=== PATIENT | female | born 1995 | race Caucasian/White ===

== ENCOUNTER 2016-07-11 21:56 | Emergency (ER) | payer BC ==
[2016-07-11] MEDS ORDERED: predniSONE TAB* 20 MG PO ONE (22:15)
[2016-07-11] MEDS ORDERED: Ondansetron ODT TAB* 4 MG PO ONE ×2 (22:16→22:17)
[2016-07-11 23:19] VITALS: BP 101/76
--- NOTE | 2016-07-11 23:30 | ED ---
Allergic Reaction/Systemic - HPI Summary HPI Summary: Patient arrives to ED with CC of allergic reaction; nauseous, dizzy, hot; Patient had Benadryl one hour ago which helped resolve her symptoms; orbital edema and edema around mouth which has resolved. She arrives to ED d/t continuous nausea even after allergic symptoms resolved. She denies airway compromise, shortness of breath or chest pain. She denies urticaria. Patient states hot feeling resolved after 1 hour. Patient is allergic to nuts but did not have any prior to the reaction. She states she had some Ritz crackers, which she eats daily, and has never had a reaction to. She admits there might be cross contamination. - History of Current Complaint Chief Complaint: EDAllergicReaction Time Seen by Provider: 07/11/16 22:07 Hx Obtained From: Patient Onset/Duration: Sudden Onset Timing: Constant, Lasting Hours - resolved on arrival Severity Initially: Mild Severity Currently: Mild Pain Intensity: 0 Pain Scale Used: 0-10 Numeric Character: Swelling - herminio-orbital now resolved Associated Signs And Symptoms: Positive: Nausea - Related Hx Possible Reaction To: Food - Allergies/Home Medications Allergies/Adverse Reactions: Allergies Allergy/AdvReac Type Severity Reaction Status Date / Time Peanut Oil Allergy Anaphylatic Verified 07/11/16 23:09 Shock Peanut-containing Drug Allergy Anaphylatic Verified 07/11/16 23:09 Products Shock PMH/Surg Hx/FS Hx/Imm Hx Previously Healthy: Yes Infectious Disease History: No Infectious Disease History: Denies: Traveled Outside the [place] in Last 30 Days - Social History Occupation: Unemployed Lives: With Family Alcohol Use: Weekly Hx Substance Use: No Substance Use Type: Reports: None Hx Tobacco Use: No Smoking Status (MU): Never Smoked Tobacco Review of Systems Constitutional: Negative Eyes: Negative Cardiovascular: Negative Respiratory: Negative Positive: Nausea Genitourinary: Negative Skin: Negative Neurological: Negative Psychological: Normal All Other Systems Reviewed And Are Negative: Yes Physical Exam Triage Information Reviewed: Yes Vital Signs On Initial Exam: Initial Vitals Temp Pulse Resp BP Pulse Ox 97.1 F 88 16 110/73 97 07/11/16 21:59 07/11/16 21:59 07/11/16 21:59 07/11/16 21:59 07/11/16 21:59 Vital Signs Reviewed: Yes Appearance: Positive: Well-Appearing, No Pain Distress, Well-Nourished Skin: Positive: Skin Color Reflects Adequate Perfusion Eyes: Positive: EOMI, JOSE, Conjunctiva Clear ENT: Positive: Pharynx normal, TMs normal Respiratory/Lung Sounds: Positive: Clear to Auscultation, Breath Sounds Present Cardiovascular: Positive: Normal, RRR Bowel Sounds: Positive: Present Musculoskeletal: Positive: Normal, Strength/ROM Intact Neurological: Positive: Alert, Oriented to Person Place, Time Psychiatric: Positive: Normal AVPU Assessment: Alert - Magalie Coma Scale Coma Scale Total: 15 Diagnostics - Vital Signs Vital Signs Temp Pulse Resp BP Pulse Ox 07/11/16 23:18 87 101/76 99 07/11/16 23:14 97.1 F 88 16 101/76 07/11/16 23:05 81 99 07/11/16 21:59 97.1 F 88 16 110/73 97 - Laboratory Lab Statement: Any lab studies that have been ordered have been reviewed, and results considered in the medical decision making process. Allergic Reaction Course/Dx - Course Course Of Treatment: Patient given zofran and prednisone in ED. Patient symptoms resolved on arrival. Unknown contact with allergen. Will treat for 5 days of prednisone. Benadryl encouraged at night. Patient has epi-pen and has not had to use it. Patient encouraged to follow up with PCP. - Diagnoses Differential Diagnosis/HQI/PQRI: Positive: Airway Obstruction, Anaphylaxis, Angioedema Provider Diagnoses: Allergic reaction Discharge - Discharge Plan Condition: Stable Disposition: HOME Prescriptions: predniSONE TAB* [Deltasone TAB*] 40 mg PO DAILY #8 tab MDD 2 Patient Education Materials: Peanut Allergy (ED) Additional Instructions: Follow up with PCP. If symptoms fail to improve or worsen, come back to ED. Take zofran as prescribed to you. Take prednisone as prescribed to you - 40mg every morning for 4 days. If reaction occurs, you may take Benadryl up to 50mg for relief.
== END 2016-07-11 23:14 | disposition home or self-care (01) ==
LOC: ED 21:56
DX: T78.40XA Allergy, unspecified, initial encounter (principal); R11.0 Nausea; X58.XXXA Exposure to other specified factors, initial encounter; R42 Dizziness and giddiness
CPT/HCPCS: 99282; A9270-GY; J7512